=== PATIENT | male | born 1980 | race Caucasian/White ===

== ENCOUNTER 2024-07-08 09:23 | Outpatient (CLI) | payer BC, SELFPAY ==
--- NOTE | 2024-07-08 09:39 | ECG_ITS ---
Test Date: 2024-07-08 09:48:40 Measurements Intervals [place] Rate: 78 P: 28 AL: 156 QRS: 27 QRSD: 100 T: 14 QT: 383 QTc: 437 Interpretive Statements SINUS RHYTHM No previous ECG available for comparison Electronically Signed On 07-08-2024 19:08:51 CDT by Hernandez Lazo
--- OUTSIDE RECORDS SUMMARY | 2024-07-09 11:32 | XMS_ITS | Clinical Summary ---
Author Organization [facility] Address [address] [place] [id number] Phone Care Team Providers Care Desktop Manager Name Role Phone Omar Hernandez MD Primary Care Provider [phone] Allergies No known active allergies Medications colchicine (COLCRYS) 0.6 MG tablet as directed 0 12/17/2016 Active Febuxostat (ULORIC) 40 MG tablet 1 tab/cap qday 0 12/17/2016 Active amLODIPine (NORVASC) 10 MG tablet 01/02/2020 Active atorvastatin (LIPITOR) 10 MG tablet 01/02/2020 Active lisinopril (PRINIVIL) 40 MG tablet 10/10/2020 Active Active Problems Problem Noted Date Diagnosed Date Renal hypoplasia, 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 Chronic kidney disease, stage 2 (mild) 2 Essential (primary) hypertension 09/29/2011 Immunizations Immunization Administration Dates Next Due Influenza, Injectable, Quadrivalent 12/20/2019 Sars-cov-2, Unspecified 07/16/2020 Family History Medical History Relation Comments Kidney disease Neg Hx Kidney stone Neg Hx Social History Tobacco Use Types Packs/Day Years Used Date Smoking Tobacco: Never Smokeless Tobacco: Never Tobacco Cessation:Counseling Given: Not Answered Alcohol Use Standard Drinks/Week Comments No 0 (1 standard drink = 0.6 oz pur e alcohol) Sex and Gender Information Value Date Recorded Sex Assigned at Not on file Legal Sex Male 8:22 AM MST Gender Identity Not on file Sexual Orientation Not on file Last Filed Vital Signs Vital Sign Reading Time Taken Comments Blood Pressure 124/68 01/15/2022 8:46 AM [employer] Pulse - - Temperature 36.4 C (97.6 F) 01/15/2022 8:46 AM [employer] Respiratory Rate 18 01/15/2022 8:46 AM [employer] Oxygen Saturation - - Inhaled Oxygen Concentration - - Weight 92.5 kg (204 lb) 01/15/2022 8:46 AM [employer] Height 177.8 cm (5' 10 ) 01/15/2022 8:46 AM [employer] Body Mass Index 29.27 01/15/2022 8:46 AM [employer] Plan of Treatment Health Maintenance Due Date Last Done Comments Influenza Vaccine (Season Ended) 2024 Insurance [facility] Care Teams Desktop Manager Relationship Specialty Start Date End Date Omar Hernandez MD [address] [facility] [address] [facility] [address] [place] [address] PCP - General Internal Medicine 01/19/19
== END 2024-07-08 09:24 | disposition home or self-care (01) ==
LOC: ANHSURGERY 09:27
PROVIDERS: PCP Family Medicine; Visit Provider Surgery
DX: E78.5 Hyperlipidemia, unspecified (principal); I10 Essential (primary) hypertension; Z01.818 Encounter for other preprocedural examination
CPT/HCPCS: 93005

== ENCOUNTER 2024-07-15 00:56 | Day surgery (SDC) | payer BC, SELFPAY ==
[2024-07-06 14:44] VITALS: BMI 30.2
--- NOTE | 2024-07-06 14:51 | PC.NURSE ---
Report to the Outpatient Waiting Room, entrance under the green pavilion located off [facility], at time _0700_ on date _[id number]_. Planned Procedure Time: _0900_.? Time changes happen often and if your time is changed the preop area will call you the afternoon before. - You and your visitor will be asked to self-screen and do not enter if you have any COVID symptoms. Please call surgeon if you need to reschedule. - A mask is optional within the hospital at this time. Patients may have clear liquids (water, carbonated beverages, clear teas, apple juice) until 3 hours prior to surgery with a maximum of 20 ounces. - No food from midnight until time of surgery and no smoking, or chewing tobacco (or any form of nicotine). No chewing gum, candy or mints. Take only the following medications with a SIP of water on the morning of surgery: __Amlodipine, Hydralazine and if still taking Cephalexin.___ DO NOT STOP ANY OF YOUR OTHER PRESCRIPTION MEDICATIONS PRIOR TO SURGERY EXCEPT THE FOLLOWING Hold all vitamins and supplements for 3 days per anesthesiologist. Medications to discontinue per physician Date to take last dose Please no make-up, nail omani, hairspray, perfume, deodorant, or body powder the day of surgery.? No jewelry (including any body piercings) or valuables the day of surgery, leave them at home.? Please take a shower or bath the night before, or the morning of, surgery with an antibacterial soap.? Wear comfortable, loose fitting clothing. - Jewelry must be removed prior to entering the operating room.? Rings and piercings that are not removed may be cut off. - The hospital will not accept responsibility for valuables.? - Please leave all valuables, including medications, at home the day of surgery. If you are going home after surgery, a licensed local [place] truck driver must drive you home.? - NO public transportation without another adult if you receive anesthesia. - We recommend that an adult stay with you for 24 hours following discharge. - We also recommend that you do not drive, make important decision, drink alcoholic beverages, or take any drugs that were not prescribed by your health care provider for at least 24 hours after your discharge time. Follow any additional instructions given to you from your surgeon. Telephone instructions given to __Rob__and asked if any additional questions and then verbalized understanding. Patient advised to call surgeon office or pre surgery nurse liaison [phone] if any additional questions.
[2024-07-15] VITALS (9 sets, daily range): BP systolic 97–147; BP diastolic 53–89; PULSE 54–82; RESP 11–18; TEMP 36.2–36.4; O2SAT 98–100
--- OUTSIDE RECORDS SUMMARY | 2024-07-15 00:59 | XMS_ITS | Clinical Summary ---
Author Organization [facility] Address [address] [place] [id number] Phone Care Team Providers Care Fruit Buyer Name Role Phone Omar Hernandez MD Primary Care Provider [phone] Allergies No known active allergies Medications colchicine [...] Comments Blood Pressure 124/68 01/15/2022 8:46 AM [employer] Pulse - - Temperature 36.4 C (97.6 F) 01/15/2022 8:46 AM [employer] Respiratory Rate 18 01/15/2022 8:46 AM [employer] Oxygen Saturation - - Inhaled Oxygen Concentration - - Weight 92.5 kg (204 lb) 01/15/2022 8:46 AM [employer] Height 177.8 cm (5' 10 ) 01/15/2022 8:46 AM [employer] Body Mass Index 29.27 01/15/2022 8:46 AM [employer] Plan of Treatment Health Maintenance Due Date Last Done Comments Influenza Vaccine (Season Ended) 2024 Insurance [facility] Care Teams Fruit Buyer Relationship Specialty Start Date End Date Omar Hernandez MD [address] [facility] [address] [facility] [address] [place] [address] PCP - General Internal Medicine 01/19/19
--- NOTE | 2024-07-15 07:03 | WPDHPUPDATE1 ---
History and Physical Update Update Date/Time: 07/15/24 07:03 History and Physical has been reviewed, including an updated exam of the patient. There are NO changes in the patient's condition. Risks, benefits, and alternatives have been discussed and questions answered. Patient agrees to proceed with procedure.
[2024-07-15] MEDS: LACTATED RINGERS 1,000 ML 30 ML IV CONT (07:45)
--- NOTE | 2024-07-15 08:07 | WPDANESEPPF ---
Anes - Initial Pre Proc Eval Procedure: Operation Date: 07/15/24 09:00 Proposed Procedures p Recurrent Pilonidal Cystectomy - Jerel Stone MD Date/Time: 07/15/24 08:07 Surgeon: Jerel Stone MD Pre Op Diagnosis: recurrent pilonidal cyst Patient Data Age: 43 Gender: M Height: 1.78 m Weight: 95.5 kg Allergies Allergy/AdvReac Type Severity Reaction Status Date / Time No Known Allergies Allergy Verified 07/13/24 13:04 Home Medications ?Medication ?Instructions ?Recorded ?Confirmed ?Type amlodipine 10 mg tablet See Rx Instructions .Route 07/05/24 07/13/24 Rx .COMPLEX #30 tabs atorvastatin 10 mg tablet See Rx Instructions .Route 07/05/24 07/13/24 Rx .COMPLEX #30 tabs cephalexin 500 mg capsule 500 mg PO TID #30 caps 07/05/24 07/13/24 Rx colchicine 0.6 mg tablet See Rx Instructions .Route 07/05/24 07/13/24 Rx .COMPLEX #30 tabs febuxostat 40 mg tablet See Rx Instructions .Route 07/05/24 07/13/24 Rx .COMPLEX #30 tabs lisinopril 40 mg tablet See Rx Instructions .Route 07/05/24 07/13/24 Rx .COMPLEX #30 tabs hydralazine 25 mg tablet 25 mg PO BID #60 tabs 07/06/24 07/13/24 Rx Patient hx anesthesia problems: none Family hx anesthesia problems: none Results Review: All pre-operative results and documents have been reviewed as part of the pre-operative evaluation. [facility] Past Medical History Medical History Chronic Kidney Disease Gout Hyperlipidemia Benign hypertension with chronic kidney disease Surgical History Surgical History History of excision of pilonidal cyst x 2 Family History Family History Father Hypertension Cancer Sibling Hypertension Mother Cancer Grandparent Cancer Cerebrovascular accident Hypertension Other Diabetes mellitus Family history of alcoholism Family history of cardiovascular disease Social History Social History Smoking status: Never smoker Second hand tobacco smoke exposure: No Alcohol intake: current Drinks per week: 1 Substance use: never Substance use type: does not use Do You Feel Safe in your Home?: Yes Lack of Transportation: No Lack of Food: Never True Current Housing: I Have Housing Concerned About Future Housing: No Difficulty Paying Gas/Electric Bills: No Difficulty Paying for Meds: No Currently Unemployed: No Education: Master's Degree or Higher Living arrangements: with family Occupation/Education: occupation Gender identity (if verbalized by the patient): Male Sexual Orientation (if Verbalized by the Patient): Straight or Heterosexual Spiritual care concerns: No Agree to blood products: Yes Anes - Eval Final PreProcedure Day of Procedure 07/15/24 08:07 Patient weight: overweight Heart: regular rate and rhythm Lungs: clear to auscultation Airway: Mallampati scale class II Neurological: alert and oriented Last oral intake: >/= 8 hours ASA classification: III Emergent: no Anesthetic plan: proceed Anesthesia type and monitoring: general ETT and standard monitoring Results Review: All pre-operative results and documents have been reviewed as part of the pre-operative evaluation. Informed Consent: The patient's anesthetic plan and its attendant risks and benefits were discussed with the patient/family/POA. Questions were solicited and answers provided to the satisfaction of the patient/family/POA.
[2024-07-15] MEDS: ceFAZolin 2 GM/D5W 50 ML 2 GM/50 ML BAG IVPB (09:04)
[2024-07-15] MEDS: BUPivacaine HCL 0.5% PF 30 ML VIAL INFILTRATE (09:29)
[2024-07-15] MEDS: LIDO 1%/EPINEPHRINE 1:100,000 50 ML VIAL 30 ML INFILTRATE (09:30)
[2024-07-15] MEDS: KETOROLAC 15 MG/ML VIAL (*BKC) IV PUSH (09:47)
[2024-07-15] MEDS: BACITRACIN OINTMENT 15 GM TUBE 1 APPLIC TOPICAL (10:10)
--- NOTE | 2024-07-15 10:15 | P.OP_ITS ---
Procedure Note - Detailed Date of Procedure 07/15/24 Pre-op Diagnosis Recurrent pilonidal cyst Post-op Diagnosis Same Procedure Performed Extensive recurrent pilonidal cystectomy Surgeon Jerel Stone MD Painter Sign Maintenance [facility] Anesthesia General Indications Patient is a 43-year-old gentleman who had a pilonidal cyst excised with a pilonidal cystectomy many years ago. More recently he has recurrent area of drainage in the midportion of the scar. On examination he has another pilonidal cyst inferior portion of the scar with a draining sinus tract to the meds portion of the scar. Findings Patient had chronic scar tissue in the upper midline gluteal cleft. There was a pilonidal cyst with hair within it the lower portion of the scar which extended with a sinus to the draining opening in the midportion of the scar. Description of Procedure After informed consent was obtained patient brought to the operating room was placed under general endotracheal anesthesia on the gurney and then turned into the prone jacquie-knife position on the operating table. Care was taken to make sure all the pressure points were well padded. The lower back and buttock region was then shaved and the buttocks were taped apart to expose the upper midline gluteal cleft. Time-out was then performed correctly identifying the patient and the procedure to be performed. He was given perioperative IV antibiotics. I then made a elliptical elongated incision to include all the old scar and down past the pilonidal cyst in the lower 1/3 of the upper midline gluteal cleft. The incision carried deeply down through the dermis skin with a scalpel into the subcutaneous tissues. Then utilized electrocautery to completely excise out the ellipse of tissue containing the old scar as well as the recurrent pilonidal cyst and draining sinus tract. The excision of the subcutaneous tissues taken all the way down to the presacral fascia. Once the tissue was completely excised out was sent to pathology for examination. There is no drainage of pus out of the sinus tract. I then irrigated out the incision with sterile saline solution and hemostasis was good. The tape was detached from the operating table to allow the tension on the buttocks to be released. I then closed the incision with multiple layers of interrupted 0 Vicryl sutures in the deepest subcutaneous tissues. This was followed by layers of interrupted 2- 0 Vicryl sutures in the mid portions of the wound in the subcutaneous tissues. More superficial layer of interrupted 3-0 Vicryl suture was placed in the deep dermis. The skin edges were then approximated utilizing interrupted 3-0 nylon sutures placed in vertical mattress fashion. There was no tension on the closure. The incision was then cleaned and then antibiotic ointment and sterile dressing was applied. The patient tolerated the procedure well no complications. All sponges, needles, and instrument counts were correct at the end procedure. EBL was _ 10 __cc. The patient was awakened and taken to recovery in stable and satisfactory condition. Implants None Estimated Blood Loss 10 Drains No Packing No Pathology Yes (Recurrent pilonidal cyst, scar, and draining sinus tract sent to pathology) Complications No immediate complications Condition Stable Disposition PACU [facility] Billing Surgery - Charge Forward: Surgery Billing
== END 2024-07-15 12:10 | disposition home or self-care (01) ==
PROVIDERS: PCP Family Medicine; Visit Provider Surgery
PROC: (CPT 11771; principal; 2024-07-15 09:00)
DX: L05.91 Pilonidal cyst without abscess (principal); E78.5 Hyperlipidemia, unspecified; I12.9 Hypertensive chronic kidney disease with stage 1 through stage 4 chronic kidney disease, or unspecified chronic kidney disease; N18.9 Chronic kidney disease, unspecified; Z98.890 Other specified postprocedural states; Z80.9 Family history of malignant neoplasm, unspecified; Z82.49 Family history of ischemic heart disease and other diseases of the circulatory system
CPT/HCPCS: 11771; 88305; A9270; J0690; J1100; J1885; J2003; J2004; J2250; J2405; J2704; J3010; J7120